=== PATIENT | female | born 1990 | race Caucasian/White ===

== ENCOUNTER 2017-08-30 21:49 | Emergency (ER) | payer MEDICAID, OTHER ==
[2017-08-30 21:57] VITALS: BMI 32.9
[2017-08-30 22:05] VITALS: BP 124/80; PULSE 124; RESP 20; TEMP 99.4; O2SAT 95
--- NOTE | 2017-08-30 22:05 | ED PDOC ---
Arrival/HPI - General Chief Complaint: Fever Time Seen by Provider: 08/30/17 21:58 Historian: Patient - History of Present Illness Narrative History of Present Illness (Text): 08/30/17 22:03 27 yo female with bodyaches, fevers, chills, nausea since yesterday. Admits to congestion and cold symptoms. Could not tolerate OTC meds due to nausea. Just finished menses. Denies any chance of . Past Medical History - Provider Review Nursing Documentation Reviewed: Yes - Travel History Have you recently traveled outside [place] w/in the past 3 mons?: No - Past History Past History: No Previous - Infectious Disease Hx of Infectious Diseases: None - Reproductive Currently : No - Past Medical History Past Medical History: No Previous - Psychiatric Hx Substance Use: No - Surgical History Other/Comment: rhinoplasty 2013 - Anesthesia Hx Anesthesia: Yes - Suicidal Assessment Feels Threatened In Home Enviroment: No Family/Social History Family/Social History: No Known Family HX Smoking Status: Never Smoked Hx Alcohol Use: No Hx Substance Use: No Allergies/Home Meds Allergies/Adverse Reactions: Allergies No Known Allergies Allergy (Verified 05/28/15 21:56) Review of Systems - Physician Review All systems were reviewed & negative as marked: Yes - Review of Systems Constitutional: Fatigue, Fevers Eyes: Eye Pain ENT: Sore Throat, Rhinorrhea, Sinus Congestion Respiratory: Cough. absent: SOB, Wheezing Cardiovascular: absent: Chest Pain Gastrointestinal: Vomiting. absent: Abdominal Pain Genitourinary Female: Normal Musculoskeletal: Arthralgias, Myalgias Skin: absent: Rash Neurological: Headache, Dizziness Physical Exam Vital Signs Reviewed: Yes Vital Signs Temp Pulse Resp BP Pulse Ox 08/30/17 22:04 99.4 F 124 H 20 124/80 95 Temperature: Febrile Pulse: Tachycardic Respiratory Rate: Normal Appearance: Positive for: Uncomfortable Pain Distress: Mild Mental Status: Positive for: Alert and Oriented X 3 - Systems Exam Head: Present: Atraumatic Pupils: Present: PERRL Extroacular Muscles: Present: EOMI Conjunctiva: Present: Normal Ears: Present: Normal Mouth: Present: Moist Mucous Membranes Pharnyx: Present: Normal. No: ERYTHEMA Respiratory/Chest: Present: Clear to Auscultation, Good Air Exchange. No: Respiratory Distress Cardiovascular: Present: Regular Rate and Rhythm, Tachycardic Abdomen: No: Tenderness, Distention Upper Extremity: Present: Normal Inspection, Normal ROM Lower Extremity: Present: Normal Inspection. No: Edema Neurological: Present: Motor Func Grossly Intact, Normal Sensory Function, Normal Cerebellar Funct Skin: Present: Warm, Dry. No: Rashes Lymphatic: No: Cervical Adenopathy Psychiatric: Present: Alert, Oriented x 3 Medical Decision Making - Lab Interpretations Lab Results: Lab Results 08/30/17 22:00: Influenza Typ A,B (EIA) Pos for influenza a H - Medication Orders Current Medication Orders: Discontinued Medications Ketorolac Tromethamine (Toradol) 60 mg IM STAT STA Stop: 08/30/17 22:02 Last Admin: 08/30/17 22:10 Dose: 60 mg MAR Pain Assessment Document 08/30/17 22:10 CNR (Rec: 08/30/17 22:10 CNR [id number]) Pain Reassessment Is this a pain reassessment? Yes IM Administration Charges Document 08/30/17 22:10 CNR (Rec: 08/30/17 22:10 CNR [id number]) Injection Site MAR Injection Site Right Gluteus Stef Charges for Administration # of IM Administrations 1 Disposition/Present on Arrival - Present on Arrival Any Indicators Present on Arrival: No History of DVT/PE: No History of Uncontrolled Diabetes: No Urinary Catheter: No History of Decub. Ulcer: No History Surgical Site Infection Following: None - Disposition Have Diagnosis and Disposition been Completed?: Yes Diagnosis: Influenza A Disposition: HOME/ ROUTINE Disposition Time: 22:30 Patient Plan: Discharge Patient Problems: Current Active Problems Problem Status Onset Influenza A Acute Condition: STABLE Additional Instructions: Plenty of fluids. Tylenol every 4 hours Prescriptions: Lansoprazole [Prevacid] 30 mg PO DAILY #14 capsule. Oseltamivir Phosphate [Tamiflu] 75 mg PO BID #10 capsule Forms: [employer] (Russian), WORK NOTE
== END 2017-08-30 22:36 | disposition home or self-care (01) ==
LOC: ED 21:49
DX: J09.X2 Influenza due to identified novel influenza A virus with other respiratory manifestations (principal)
CPT/HCPCS: 87804; 96372; 99284; J1885